=== PATIENT | male | born 1965 | race Two or more races ===

== ENCOUNTER 2021-05-30 10:33 | Emergency (ER) | payer OTHER ==
[~2021-05-30] VITALS: Ht 180.3 cm; Wt 81.6 kg
[2021-05-30] MEDS ORDERED: ATEN25TA PO (10:38)
--- NOTE | 2021-05-30 10:42 | NUR ---
BIB [facility] 86 FROM WORK,SVT UPON EMS ARRIVAL,[employer]ED [employer]. THE PATIENT DENIES HAVING ANY PAIN OR DISTRESS. IN ROOM AIR AND DENIES SOB. RESPIRATION REGULAR AND UNLABORED. ATTACHED TO THE MONITOR.
[2021-05-30 11:10] VITALS: BP 171/97
--- NOTE | 2021-05-30 11:23 | NUR ---
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
--- NOTE | 2021-05-30 11:30 | NUR ---
The patient is alert and oriented x4. Denies pain. In room air and denies SOB. Respiration reglar and unlabored. IV removed. Catheter intact and site benign. Pressure and 4x4 applied to site. No bleeding noted.Patient does not wish to proceed with medical care recommended by Dr. Anne. Patient given information related to possible complications, up to and including , which could occur as a result of leaving the hospital at this time. Patient verbalizes understanding of risks involved due to leaving against medical advice. Patient refused to sign AMA form.
[2021-05-30 12:07] LABS: BASOPHILS # (AUTO) 0.1 K/uL (0.0-0.2); BASOPHILS % (AUTO) 1.3 % (0.0-2.0); EOSINOPHILS % (AUTO) 2.1 % (0.0-6.0); HEMATOCRIT 29 % (39-51); LYMPHOCYTES # (AUTO) 2.6 K/uL (0.8-4.8); LYMPHOCYTES % (AUTO) 28.9 % (20.0-44.0); MEAN CORPUSCULAR HGB CONC 31 g/dl (31.0-36.0); MEAN CORPUSCULAR VOLUME 85 fL (80-96); MONOCYTES # (AUTO) 0.8 K/uL (0.1-1.30); MONOCYTES % (AUTO) 9.4 % (2.0-12.0); NEUTROPHILS # (AUTO) 5.2 K/uL (1.8-8.9); NEUTROPHILS % (AUTO) 58.3 % (43.0-81.0); PLATELET COUNT (AUTO) 342 K/uL (150-450); RED BLOOD CELL COUNT(AUTO) 3.35 MIL/uL (4.5-6.0)
--- NOTE | 2021-05-30 12:25 | NUR ---
Note geovanny in EDM - 05/30/21 at 1226 by MARLYS The patient is alert and oriented x4. Denies pain. In room air and denies SOB. Respiration reglar and unlabored. IV removed. Catheter intact and site benign. Pressure and 4x4 applied to site. No bleeding noted.Patient does not wish to proceed with medical care recommended by Dr. Anne. Patient given information related to possible complications, up to and including , which could occur as a result of leaving the hospital at this time. Patient verbalizes understanding of risks involved due to leaving against medical advice. Patient refused to sign AMA form.
[2021-05-30 12:34] LABS: CALCIUM, SERUM 8.8 mg/dL (8.5-10.1); CARBON DIOXIDE 25 mmol/L (21-32); CHLORIDE 106 mmol/L (98-107); GLUCOSE 95 mg/dL (74-106); POTASSIUM 3.7 mmol/L (3.5-5.1); SODIUM SERUM 143 mmol/L (136-145); UREA NITROGEN, BLOOD 8 mg/dL (7-18)
== END 2021-05-30 12:28 | disposition left against medical advice (07) ==
LOC: ER 10:35
DX: R00.2 Palpitations (principal); Z79.899 Other long term (current) drug therapy
CPT/HCPCS: 36415; 71045-TC; 80048-TC; 83880; 84484-TC; 85025-TC